=== PATIENT | male | born 1995 | race Caucasian/White ===

== ENCOUNTER 2020-04-27 20:30 | Emergency (ER) | payer OTHER ==
[2020-04-27] MEDS ORDERED: Gentamicin 0.3% Ophth Soln 5 ML Bottle EYERT ONE (20:31)
[2020-04-27] MEDS ORDERED: Tetracaine HCl/PF 0.5% 4 ML Bottle EYEBOTH ONE (20:33)
[2020-04-27] MEDS ORDERED: Fluorescein 1 MG Ophth Strip EYEBOTH ONE (20:33)
[2020-04-27] MEDS ORDERED: Gentamicin 0.3% Ophth Soln 5 ML Bottle ONE (21:05)
--- NOTE | 2020-04-27 21:10 | EDM.PDOC ---
ED HPI GENERAL MEDICAL PROBLEM - General Chief Complaint: Eye Problems Stated Complaint: HOT METAL SHAVING IN EYE Time Seen by Provider: 04/27/20 21:06 Source of Information: Reports: Patient History Limitations: Reports: No Limitations - History of Present Illness INITIAL COMMENTS - FREE TEXT/NARRATIVE: got metal into left eye, thinks did get it out. Left Eye Pain Score (Numeric/FACES): 7 - Related Data Allergies Allergy/AdvReac Type Severity Reaction Status Date / Time No Known Allergies Allergy Verified 04/27/20 20:36 Home Meds: Home Meds . [No Known Home Meds] 04/27/20 [History] Past Medical History - Past Health History Medical/Surgical History: Denies Medical/Surgical History Social & Family History - Tobacco Use Smoking Status *Q: Current Every Day Smoker Years of Tobacco use: 5 Packs/Tins Daily: 0.5 Second Hand Smoke Exposure: Yes - Recreational Drug Use Recreational Drug Use: No ED ROS GENERAL - Review of Systems Review Of Systems: Comprehensive ROS is negative, except as noted in HPI. ED EXAM GENERAL W FULL EYE - Physical Exam Exam: See Below Exam Limited By: No Limitations General Appearance: Alert, WD/WN, Mild Distress, Other (discomfort) Eyelids: Left: Lid Everted for Exam (normal appearance), Bilateral: Normal Appearance Conjunctiva & Sclera: Left: Injected Cornea Exam: Left: Corneal Abrasion, Examined with Flourescein Extraocular Movements: Bilateral: Intact Pupillary Size: Bilateral: 5 mm Pupillary Reaction: Bilateral: Brisk Anterior Chamber: Bilateral: Normal Appearance Ears: Hearing Grossly Normal Throat/Mouth: Normal Voice, No Airway Compromise Head: Atraumatic Neck: Non-Tender, Full Range of Motion Respiratory/Chest: No Respiratory Distress Cardiovascular: Regular Rate, Rhythm GI/Abdominal: Soft, Non-Tender Neurological: Alert, Oriented, Normal Cognition, Normal Gait, No Motor/Sensory Deficits Psychiatric: Normal Affect, Normal Mood Skin Exam: Warm, Dry, Normal Color Lymphatic: No Adenopathy Course - Vital Signs Last Recorded V/S: Last Vital Signs Temp 36.7 C 04/27/20 20:34 Pulse 59 L 04/27/20 20:34 Resp 18 04/27/20 20:34 BP 134/94 H 04/27/20 20:34 Pulse Ox 98 04/27/20 20:34 - Orders/Labs/Meds Meds: Medications Discontinued Medications Generic Name Dose Route Start Last Admin Trade Name Irina PRN Reason Stop Dose Admin Fluorescein Sodium 1 mg 04/27/20 20:33 04/27/20 20:41 Ful-Pretty EYEBOTH 04/27/20 20:34 1 mg ONETIME ONE Administration Tetracaine HCl 2 ml 04/27/20 20:33 04/27/20 20:41 Tetracaine 0.5% Steri-Unit [place] EYEBOTH 04/27/20 20:34 2 ml ASDIRECTED ONE Administration Departure - Departure Time of Disposition: 21:08 Disposition: Home, Self-Care 01 Condition: Good Clinical Impression: Corneal abrasion Qualifiers: Encounter type: initial encounter Laterality: left Qualified Code(s): S05.02XA - Injury of conjunctiva and corneal abrasion without foreign body, left eye, initial encounter - Discharge Information Instructions: Corneal Abrasion, [id number] Additional Instructions: 1) don't rub eye 2) use eye drops next 3 days 3) recheck if there is any change or concern rx togo; gentamycin eye drops 2 drops qid x 3 days Sepsis Event Note (ED) - Evaluation Sepsis Screening Result: No Definite Risk - Focused Exam Vital Signs: Vital Signs Temp Pulse Resp BP Pulse Ox 04/27/20 20:34 36.7 C 59 L 18 134/94 H 98
== END 2020-04-27 21:13 | disposition home or self-care (01) ==
LOC: DL.ED 20:30
DX: S05.02XA Injury of conjunctiva and corneal abrasion without foreign body, left eye, initial encounter (principal); F17.210 Nicotine dependence, cigarettes, uncomplicated; X58.XXXA Exposure to other specified factors, initial encounter
CPT/HCPCS: 99283; A9270